=== PATIENT | female | born 1995 | race Two or more races ===

== ENCOUNTER 2016-11-20 08:41 | Inpatient (IN) | payer OTHER ==
[~2016-11-20] VITALS: Ht 157.5 cm; Wt 67.4 kg
[2016-11-20 08:55] VITALS: Ht 157.5 cm; Wt 67.4 kg
[2016-11-20] MEDS ORDERED: PRENAT PO (08:57)
--- NOTE | 2016-11-20 10:15 | RADRPT ---
PROCEDURE: OB ultrasound for biophysical profile CLINICAL INDICATION: Biophysical profile. . TECHNIQUE: Multiple sonographic images of the pelvis were obtained. Transabdominal view of the gr avid uterus are available for review. The images were reviewed on a PACS workstation. COMPARISON: None FINDINGS: Single intrauterine gestation. Presentation: cephalic. Placenta: anterior breathing movement = 2/2 tone = 2/2 motion = 2/2 ROBB = 2/2 ROBB = 13.7 cm heart rate: 155 beats per minute IMPRESSION: Single intrauterine gestation. Biophysical profile 06/14 RPTAT: AADD .Niko Ojeda MD, MD Date Time Electronically viewed and signed by .Niko Ojeda MD, on 11/20/2016 10:14 .B/
[2016-11-20] MEDS: LACTATED RINGER'S 1,000 ML IV SCH ×2 (11:27→20:45)
[2016-11-20] MEDS ORDERED: IBUPROFEN 600 MG TAB PO PRN (11:30)
[2016-11-20] MEDS ORDERED: OXYTOCIN 30 UNITS/LR 500 ML IV PRN (11:30)
[2016-11-20] MEDS ORDERED: AMPICILLIN 2 GM/NS (PMX) 100 ML IV ONE (11:30)
[2016-11-20] MEDS ORDERED: LIDOCAINE 1% (MPF) 30 ML INJ INJ PRN (11:30)
[2016-11-20] MEDS ORDERED: METHYLERGONOVINE 0.2 MG INJ IM PRN (11:30)
[2016-11-20] MEDS ORDERED: CARBOPROST 250 MCG INJ IM PRN (11:30)
[2016-11-20] MEDS ORDERED: MISOPROSTOL 200 MCG TAB PR PRN (11:30)
[2016-11-20] MEDS ORDERED: BUTORPHANOL 2 MG INJ IV PRN (11:30)
[2016-11-20] MEDS ORDERED: OXYTOCIN 30 UNITS/LR 500 ML IV SCH ×3 (11:30)
[2016-11-20] MEDS ORDERED: LACTATED RINGER'S 1,000 ML IV PRN (12:00)
[2016-11-20 12:12] LABS: BASOPHIL # 0.1 10^3/ul (0.0-0.1); BASOPHILS % 0.5 % (0.0-2.0); EOSINOPHILS # 0.1 10^3/ul (0.0-0.5); EOSINOPHILS % 0.6 % (0.0-7.0); HEMATOCRIT 38.5 % (37.0-47.0); HEMOGLOBIN 12.6 g/dl (12.0-16.0); LYMPHOCYTES # 2.5 10^3/ul (0.8-2.9); MEAN CORPUSCULAR HGB CONC 32.7 g/dl (32.0-37.0); MEAN CORPUSCULAR VOLUME 85.5 fl (82.0-101.0); MEAN PLATELET VOLUME 9.9 fl (7.4-10.4); MONOCYTE # 1.2 10^3/ul (0.3-0.9); MONOCYTES % 7.8 % (0.0-11.0); NEUTROPHIL # 11.5 10^3/ul (1.6-7.5); NEUTROPHILS % 75.1 % (39.0-77.0); PLATELET COUNT 178 10^3/UL (140-440); RED BLOOD COUNT 4.51 10^6/ul (4.20-5.40); RED CELL DISTRIBUTION WIDTH 14.8 % (11.5-14.5); UNCORRECTED WBC 15.4 10^3/ul (4.8-10.8); WHITE BLOOD COUNT 15.4 10^3/ul (4.8-10.8)
[2016-11-20 12:14] LABS: INR 0.94; PROTIME 12.6 Sec (12.2-14.2)
[2016-11-20 12:15] LABS: PARTIAL THROMBOPLASTIN TIME 25.8 Sec (25.0-35.0)
[2016-11-20 12:17] LABS: CONDITION 1; LH ANALYZER COMMENTS 1
--- NOTE | 2016-11-20 12:44 | RADRPT ---
PROCEDURE: US OB. CLINICAL INDICATION: Uncertain size and dates. TECHNIQUE: Multiple sonographic images of the uterus were obtained. The images were revi ewed on a PACS workstation. COMPARISON: No prior studies are available for comparison. FINDINGS: There is a single live intrauterine gestation. heart rate is 141 beats per minute. Measurements were made in order to determine age. The results are as follows: BPD = 8.93 cm. HC = 32.04 cm. AC = 32.85 cm. FL = 7.17 cm. Estimated weight is 2984 +/- 448 grams. LMP growth percentile is 18 %. Menstrual age by ultrasound dates is 36 weeks 3 days. The estimated date of delivery is 12/15/2016. Position is cephalic and placenta is anterior grade II. There is no evidence for an abruption or blaine centa previa. IMPRESSION: 1. Single live intrauterine gestation of 36 weeks 3 days menstrual age by ultrasound dates. 2. The estimated date of delivery is 12/15/2016. RPTAT: QQ .Sina Garcia MD, Date Time Electronically viewed and signed by .Sina Garcia MD, on 11/20/2016 12:43 .R/
[2016-11-20] MEDS: AMPICILLIN 1 GM/NS (PMX) 50 ML IV SCH ×3 (18:13→23:30)
[2016-11-20] MEDS ORDERED: AL HYDROX/MG HYDROX/SIMETH 30 ML CUP PO PRN (23:30)
[2016-11-21] MEDS: AMPICILLIN 1 GM/NS (PMX) 50 ML IV SCH ×4 (03:28→15:21)
[2016-11-21] MEDS: LACTATED RINGER'S 1,000 ML IV SCH ×3 (04:48→16:10)
[2016-11-21] MEDS ORDERED: FENTAnyl 2MCG/ML-ROPIV 0.2% 100 ML ONE (07:53)
[2016-11-21] MEDS ORDERED: FENTAnyl 2MCG/ML-ROPIV 0.2% 100 ML BAG EPI SCH (08:00)
[2016-11-21] MEDS ORDERED: EPHEDrine SULFATE 50 MG/5 ML SYG IV PRN (08:00)
[2016-11-21] MEDS ORDERED: NALOXONE (0.4 MG/ML) INJ IV PRN (08:00)
[2016-11-21] MEDS ORDERED: ONDANSETRON 4 MG INJ IV PRN (08:00)
--- NOTE | 2016-11-21 15:28 | HP ---
Date/Time of Note Date/Time of Note DATE: 11/21/16 TIME: 15:23 OB - History Hx of Present Estimated Due Date: Nov 20, 2016 : 2 Para: 0 Spontaneous : 1 Care: Good Care Ultrasounds: Normal mid trimester US Obstetrical Complications: None Medical Complications: None Past Family/Social History * Past Medical, Surgical, Family and Obstetric Histories reviewed from chart. Blood Type: AB+ Rubella: immune RPR/VDRL: Negative GBS Status: Negative HBsAG: Negative OB Admission Exam Physical Exam HEENT: WNL Heart: Rhythm Normal Lungs: Clear, Equal Abdomen: WNL Extremities: Normal Reflexes: Normal Cervical Dilatation: 2cm Effacement: 75% Station: -2 Membranes: Intact Accelerations: Accelerations Present Decelerations: Variable Decelerations Varibility: Marked Contractions on Admission: 6-10 Minutes Apart Intensity: Mild Last 72 hours Lab Results CBC & BMP 11/20/16 11:25 OB Assessment/Plan Reason for admission: induction of labor CHRISTIAN BAILEY MD Nov 21, 2016 15:27
[2016-11-21 15:51] VITALS: BP 124/72; PULSE 80; RESP 18
--- NOTE | 2016-11-21 17:53 | LDN ---
Date/Time of Note Date/Time of Note DATE: 11/21/16 TIME: 17:46 Delivery Summary vacuum assisted delivery due to maternal fatigue episiotomy midline done baby boy 9 perineum repair no complications Assisted Vaginal Delivery: Vacuum Placenta Delivered: Spontaneously Meconium: none Perineum intact?: No Anesthesia type: Epidural Sponge & Needle done & correct: Yes All needle counts correct: Yes Any foreign bodies felt in the: No Problems: Infant Delivery Information Sex Sex: male Apgars 1 Minute: 9 5 Minute: 9 Umbilical Cord Umbilical cord with: 3 Vessels Cord presentations: no nuchal cord Cord Blood was obtained: Yes Mother & Baby Disposition Disposition Mom & Baby to Maternity; Good: Yes CHRISTIAN BAILEY MD Nov 21, 2016 17:53
[2016-11-21] MEDS ORDERED: ACETAMINOPHEN 325 MG TAB PO PRN (18:00)
[2016-11-21] MEDS ORDERED: METHYLERGONOVINE 0.2 MG INJ IM PRN (18:00)
[2016-11-21] MEDS ORDERED: CARBOPROST 250 MCG INJ IM PRN (18:00)
[2016-11-21] MEDS ORDERED: WITCH HAZEL/GLYCERIN PAD PR PRN (18:00)
[2016-11-21] MEDS ORDERED: ONDANSETRON 4 MG TAB PO PRN (18:00)
[2016-11-21] MEDS ORDERED: ACETAMINOPHEN/CODEINE #3 TAB PO PRN ×3 (18:00→19:30)
[2016-11-21] MEDS ORDERED: DIPHENHYDRAMINE 25 MG CAP PO PRN (18:00)
[2016-11-21] MEDS ORDERED: OXYTOCIN 30 UNITS/LR 500 ML IV PRN (18:00)
[2016-11-21] MEDS ORDERED: LANOLIN 7 GM TUBE TOP PRN (18:00)
[2016-11-21] MEDS ORDERED: BENZOCAINE 20% 56 ML SPRAY TOP PRN (18:00)
[2016-11-21] MEDS ORDERED: MISOPROSTOL 200 MCG TAB PR PRN (18:00)
[2016-11-21] MEDS ORDERED: DIBUCAINE 1% 30 GM OINT PR PRN (18:00)
[2016-11-21] MEDS ORDERED: ZOLPIDEM 5 MG TAB PO PRN (18:00)
[2016-11-21] MEDS: IBUPROFEN 800 MG TAB PO SCH (18:11)
[2016-11-21] MEDS: LACTATED RINGER'S 1,000 ML IV* SCH (20:32)
[2016-11-21 21:50] VITALS: BP 119/81; PULSE 78; RESP 18
[2016-11-21] MEDS: SENNA/DOCUSATE NA (8.6MG/50MG) TAB PO SCH (22:00)
[2016-11-21 22:24] VITALS: BP 108/74; PULSE 82; RESP 18
[2016-11-22 00:08] VITALS: BP 112/70; PULSE 84; RESP 18
[2016-11-22] MEDS: IBUPROFEN 800 MG TAB PO SCH ×5 (00:09→23:06)
[2016-11-22] MEDS: LACTATED RINGER'S 1,000 ML IV* SCH (01:37)
[2016-11-22 04:05] VITALS: BP 118/72; PULSE 71; RESP 18
[2016-11-22 07:55] VITALS: BP 102/60; PULSE 61; RESP 20
[2016-11-22 08:17] LABS: HEMATOCRIT 35.1 % (37.0-47.0); HEMOGLOBIN 11.6 g/dl (12.0-16.0)
[2016-11-22] MEDS: SENNA/DOCUSATE NA (8.6MG/50MG) TAB PO SCH ×2 (09:12→20:19)
[2016-11-22] MEDS: MULTIVIT/MIN/FOLATE/IRON/PREN TAB PO SCH (09:12)
--- NOTE | 2016-11-22 10:37 | PN ---
Date/Time of Note Date/Time of Note DATE: 11/22/16 TIME: 10:35 OB Subjective Subjective Subjective day 1 no complaints uterus contracted, lochia normal OB Objective HEENT: WNL Heart: Rhythm Normal Lungs: Clear, Equal Abdomen: WNL Extremities: Normal Reflexes: Normal CHRISTIAN BAILEY MD Nov 22, 2016 10:37
[2016-11-22 17:13] VITALS: BP 108/69; PULSE 59; RESP 20
[2016-11-22 20:20] VITALS: BP 101/72; PULSE 79; RESP 18
[2016-11-23 04:00] VITALS: BP 103/74; PULSE 86; RESP 18
[2016-11-23] MEDS: IBUPROFEN 800 MG TAB PO SCH ×2 (06:00→11:36)
[2016-11-23 08:00] VITALS: BP 120/77; PULSE 100; RESP 18
[2016-11-23 08:14] LABS: BASOPHILS % 0.1 % (0.0-2.0); EOSINOPHILS % 0.3 % (0.0-7.0); HEMATOCRIT 34.5 % (37.0-47.0); HEMOGLOBIN 11.5 g/dl (12.0-16.0); LYMPHOCYTES # 1.4 10^3/ul (0.8-2.9); LYMPHOCYTES % 8.3 % (15.0-51.0); MEAN CORPUSCULAR HEMOGLOBIN 28.4 pg (29.0-33.0); MEAN CORPUSCULAR HGB CONC 33.3 g/dl (32.0-37.0); MEAN CORPUSCULAR VOLUME 85.3 fl (82.0-101.0); MEAN PLATELET VOLUME 9.3 fl (7.4-10.4); MONOCYTE # 0.9 10^3/ul (0.3-0.9); MONOCYTES % 5.7 % (0.0-11.0); NEUTROPHIL # 14.4 10^3/ul (1.6-7.5); NEUTROPHILS % 85.6 % (39.0-77.0); PLATELET COUNT 178 10^3/UL (140-440); RED BLOOD COUNT 4.04 10^6/ul (4.20-5.40); RED CELL DISTRIBUTION WIDTH 15.2 % (11.5-14.5); UNCORRECTED WBC 16.8 10^3/ul (4.8-10.8); WHITE BLOOD COUNT 16.8 10^3/ul (4.8-10.8)
[2016-11-23 08:19] LABS: CONDITION 1; LH ANALYZER COMMENTS 1
[2016-11-23] MEDS ORDERED: DIPHTH/TET/ACEL PERTUSS (ADULT) 0.5 ML VIAL IM* ONE (09:00)
[2016-11-23] MEDS ORDERED: VARICELLA VACCINE LIVE/PF 1,350 UNIT/0.5 ML ML SC* ONE (09:00)
[2016-11-23] MEDS: MULTIVIT/MIN/FOLATE/IRON/PREN TAB PO SCH (09:48)
[2016-11-23] MEDS: SENNA/DOCUSATE NA (8.6MG/50MG) TAB PO SCH (09:48)
--- NOTE | 2016-11-23 10:43 | PD.PPDC ---
[employer] Discharge Instruction Condition Patient Condition: Good Diet Diet: Resume Regular Diet Activity/Restrictions Activity: Normal Activity May Shower Restrictions: No Exercising No Lifting No Driving No Sexual Activity Nothing in the Vagina No Bangs No Tampons, douche Follow-up Follow-up with Physician: 6, Week/Weeks Return to clinic for [employer] Instructions: Fever greater than 101 Chills Worsening abdominal pain Excessive Vaginal Bleeding More than 2 pads per hour Unable to tolerate diet OB Instructions: Breast Tenderness Depression Blurried Vision Headache CHRISTIAN BAILEY MD Nov 23, 2016 10:42
--- NOTE | 2016-11-23 10:48 | PN ---
Date/Time of Note Date/Time of Note DATE: 11/23/16 TIME: 10:44 OB Subjective Subjective Subjective feels good afebrile had bm\ voiding well OB Objective Objective Objective Status post vaginal delivery vacuum assisted Midline episiotomy HEENT: WNL Heart: Rhythm Normal Lungs: Clear, Equal Abdomen: WNL Extremities: Normal Reflexes: Normal OB Assessment/Plan Reason for admission: induction of labor Plan: Other CHRISTIAN BAILEY MD Nov 23, 2016 10:48
[2016-11-23 12:41] LABS: RUBELLA ANTIBODY - IGG 4.04
== END 2016-11-23 17:03 | disposition home or self-care (01) | DRG 775 ==
LOC: OBT 08:41 → L-D 08:41 → OBT 11:10 → L-D 12:56 → PP1 11-21 21:50
PROVIDERS: ADMIT Obstetrics & Gynecology; ATTEND Obstetrics & Gynecology
PROC: 10E0XZZ Delivery of Products of Conception, External Approach (ICD-10-PCS; principal; 2016-11-21)
PROC: 0HQ9XZZ Repair Perineum Skin, External Approach (ICD-10-PCS; 2016-11-21)
DX: O76 Abnormality in fetal heart rate and rhythm complicating labor and delivery (principal); O41.03X0 Oligohydramnios, third trimester, not applicable or unspecified; O70.0 First degree perineal laceration during delivery; Z3A.40 40 weeks gestation of pregnancy; Z37.0 Single live birth
CPT/HCPCS: 62319; 76815; 76818; 85014; 85018; 85025; 85610; 85730; 86592; 86703; 86762; 86900; 86901; 87340; 90715; 90716; 99464; G0463; J0290; J2210; J2405; J2590; J3010; J7120